=== PATIENT | male | born 1960 | race African-American/Black ===

== ENCOUNTER 2018-06-30 06:00 | Day surgery (SDC) | payer MEDICAID ==
[~2018-06-30] VITALS: Ht 182.9 cm; Wt 90.9 kg
[~2018-06-30 06:00] MED LIST: RINGERS SOLUTION,LACTATED 500 ML IV ONE
[2018-06-30] MEDS ORDERED: TETRACAINE HCL/PF 0.5% 4 ML OPHTHALMIC SOLUTION ONE (06:12)
[2018-06-30] MEDS ORDERED: RINGERS SOLUTION,LACTATED 500 ML IV ONE (06:12)
[2018-06-30] MEDS ORDERED: TROPICAMIDE 1% 2 ML OPHTHALMIC SOLUTION ONE (06:13)
[2018-06-30] MEDS ORDERED: CYCLOPENTOLATE HCL 1% 2 ML OPHTHALMIC SOLUTION ONE (06:13)
[2018-06-30] MEDS ORDERED: PHENYLEPHRINE HCL 2.5% 2 ML OPHTHALMIC SOLUTION ONE (06:13)
[2018-06-30] MEDS ORDERED: MOXIFLOXACIN HCL 0.5% 3 ML OPHTHALMIC SOLUTION ONE (06:14)
[2018-06-30] MEDS ORDERED: KETOROLAC TROMETHAMINE 0.5% 5 ML OPHTHALMIC SOLUTION ONE (06:14)
[2018-06-30] MEDS ORDERED: MORP30 PO (06:48)
[2018-06-30] MEDS ORDERED: HYDR-4455 PO (06:48)
[2018-06-30] MEDS ORDERED: METF750T2 PO (06:48)
[2018-06-30] MEDS: MOXIFLOXACIN HCL 0.5% 3 ML OPHTHALMIC SOLUTION OS SCH ×3 (06:53→07:05)
[2018-06-30] MEDS: KETOROLAC TROMETHAMINE 0.5% 5 ML OPHTHALMIC SOLUTION OS SCH ×3 (06:53→07:05)
[2018-06-30] MEDS: CYCLOPENTOLATE HCL 1% 2 ML OPHTHALMIC SOLUTION OS SCH ×3 (06:53→07:05)
[2018-06-30] MEDS: TROPICAMIDE 1% 2 ML OPHTHALMIC SOLUTION OS SCH ×3 (06:53→07:05)
[2018-06-30] MEDS: PHENYLEPHRINE HCL 2.5% 2 ML OPHTHALMIC SOLUTION OS SCH ×3 (06:53→07:05)
[2018-06-30] MEDS ORDERED: PrednisoLONE ACETATE 1% 5 ML OPHTHALMIC SUSPENSION OS ONE (07:00)
[2018-06-30] MEDS ORDERED: TETRACAINE HCL/PF 0.5% 4 ML OPHTHALMIC SOLUTION OS ONE (07:00)
[2018-06-30] MEDS ORDERED: BRIMONIDINE/TIMOLOL 0.2-0.5% 5 ML OPHTHALMIC SOLUTION OS ONE (07:00)
[2018-06-30] MEDS ORDERED: DORZOLAMIDE HCL 2% 10 ML OPHTHALMIC SOLUTION OS ONE (07:00)
[2018-06-30 07:08] LABS: GLUCOMETER DEV NAME(LOC) SDS 5; GLUCOSE,POINT OF CARE 185 MG/DL (70-110)
[2018-06-30] MEDS ORDERED: PrednisoLONE ACETATE 1% 5 ML OPHTHALMIC SUSPENSION ONE (08:25)
[2018-06-30] MEDS ORDERED: DEXAMETHASONE SOD PHOS 4 MG/ML VIAL IVP ONE (08:30)
[2018-06-30] MEDS ORDERED: ACETAMINOPHEN 500 MG TABLET PO ONE ×2 (09:15→09:30)
== END 2018-06-30 09:50 | disposition home or self-care (01) ==
LOC: SURGERY 06:00
PROVIDERS: ATTEND Ophthalmology Glaucoma Specialist
DX: E11.36 Type 2 diabetes mellitus with diabetic cataract (principal); Z53.8 Procedure and treatment not carried out for other reasons; H25.012 Cortical age-related cataract, left eye; H40.1123 Primary open-angle glaucoma, left eye, severe stage; I10 Essential (primary) hypertension; M19.90 Unspecified osteoarthritis, unspecified site; E78.00 Pure hypercholesterolemia, unspecified; F17.210 Nicotine dependence, cigarettes, uncomplicated; Z91.048 Other nonmedicinal substance allergy status; Z79.82 Long term (current) use of aspirin; Z79.84 Long term (current) use of oral hypoglycemic drugs; Z79.891 Long term (current) use of opiate analgesic; Z72.89 Other problems related to lifestyle; Z98.890 Other specified postprocedural states; Z79.899 Other long term (current) drug therapy
CPT/HCPCS: 82962; 93005; J7120; J1100